=== PATIENT | male | born 1985 | race Caucasian/White ===

== ENCOUNTER 2020-07-21 16:00 | Emergency (ER) | payer SELFPAY ==
[2020-07-21] MEDS ORDERED: CETI10TA74 PO (23:07)
[2020-07-21] MEDS ORDERED: OXYC1TAB19 PO (23:07)
[2020-07-21] MEDS ORDERED: DOCU50CA9 PO (23:07)
[2020-07-21] MEDS ORDERED: FLUT1DIS3 IH (23:07)
[2020-07-21] MEDS ORDERED: CHOL400C PO (23:07)
[2020-07-21] MEDS ORDERED: CYCL10TA2 PO (23:07)
== END 2020-07-21 16:19 | disposition left against medical advice (07) ==
LOC: ER 16:00
DX: R11.0 Nausea (principal); Z53.21 Procedure and treatment not carried out due to patient leaving prior to being seen by health care provider

== ENCOUNTER 2020-07-21 16:41 | Inpatient (IN) | payer OTHER ==
[~2020-07-21] VITALS: Ht 180.3 cm; Wt 65.8 kg
[2020-07-21 17:13] LABS: BILIRUBIN,URINE NEGATIVE (NEG); CLARITY,URINE CLEAR; COLOR,URINE YELLOW; NITRITE,URINE NEGATIVE (NEG); PROTEIN,URINE NEGATIVE (NEG-TRACE); UROBILINOGEN,URINE 0.2 mg/dL (0.2 mg/dL)
[2020-07-21 17:22] LABS: AMPHETAMINE/METHAMPHETAMINE NEG (NEG); BARBITURATES NEG (NEG); BENZODIAZEPINES NEG (NEG); CANNABINOIDS NEG (NEG); COCAINE NEG (NEG); METHADONE NEG (NEG); OPIATES NEG (NEG); PHENCYCLIDINE NEG (NEG)
[2020-07-21 17:36] LABS: RBC,URINE 0 /HPF (0-2); WBC,URINE RARE /HPF (0-4)
[2020-07-21 17:37] LABS: BACTERIA,URINE 0 /HPF (0-FEW)
[2020-07-21] MEDS ORDERED: KETOROLAC 30 MG/ML VIAL. IVP ONE (17:45)
[2020-07-21] MEDS ORDERED: ONDANSETRON PF 4 MG/2 ML VIAL. IVP ONE (17:45)
[2020-07-21 17:57] LABS: BASO % 0 % (0-3); EOS % 1 % (0-3); HEMOGLOBIN 12.7 g/dL (13.0-17.5); LYMPH % 14 % (24-48); MEAN CORPUSCULAR HEMOGLOBIN 30 pg (25-35); MEAN CORPUSCULAR HGB CONC 34 g/dL (31-37); MEAN CORPUSCULAR VOLUME 87 fL (79-100); MONO # 0.3 x10^3/uL (0.0-1.1); MONO % 5 % (0-9); NEUT # 5.8 x10^3/uL (1.8-7.7); NEUT % 81 % (31-73); PLATELET COUNT 229 x10^3/uL (140-400); RED BLOOD COUNT 4.24 x10^6/uL (4.30-5.70); WHITE BLOOD COUNT 7.1 x10^3/uL (4.0-11.0)
[2020-07-21] MEDS ORDERED: THIAMINE INJ 100 MG, FOLIC ACID INJ 1 MG in IV NORMAL SALINE 1000ML BAG 1,000 ML IV ONE ×2 (18:00)
[2020-07-21 18:12] LABS: CALCIUM 9.1 mg/dL (8.5-10.1); GFR 84.5
[2020-07-21 18:16] LABS: ACETAMIN < 2.0 mcg/ml (10-30); ETHANOL < 10 mg/dL (0-10); SALIC < 2.8 mg/dL (2.8-20.0)
[2020-07-21 18:18] LABS: ALBUMIN/GLOBULIN RATIO 1.5 (1.0-1.7); TOTAL BILIRUBIN 0.7 mg/dL (0.2-1.0); TOTAL PROTEIN 6.7 g/dL (6.4-8.2)
--- NOTE | 2020-07-21 18:23 | PHYS DOC ---
Past Medical History Past Medical History: Alcoholism General Adult EDM: Chief Complaint: ALCOHOL INTOXICATION HPI: HPI: Patient is a 34 year old male with a history of alcoholism who presents to the ED today with alcohol related complaints. Patient states he typically drinks every day but yesterday he drank "a lot of alcohol". Patient states this included shots as well as regular alcohol. He states he cannot even remember how much he drank. He states this morning he woke up with a bad headache and nausea. He states he took oxycodone from his own prescription for chronic low back pain that he gets from a pain clinic. He states after taking the oxycodone his headache got worse. Denies any vision changes. Denies any abdominal pain. He states his right now heels dehydrated, discombobulated, and still has nausea and a headache. Patient states he knows he has an alcohol problem and does not need help Review of Systems: Review of Systems: Constitutional: Denies fever or chills. [] Eyes: Denies change in visual acuity. [] HENT: Denies nasal congestion or sore throat. [] Respiratory: Denies cough or shortness of breath. [] Cardiovascular: Denies chest pain or edema. [] GI: Reports nausea and vomiting. Denies abdominal pain, bloody stools or diarrhea. [] : Denies dysuria. [] Musculoskeletal: Denies back pain or joint pain. [] Integument: Denies rash. [] Neurologic: Reports headache, denies focal weakness or sensory changes. [] Psychiatric: Reports drinking heavily. Heart Score: Risk Factors: Risk Factors: DM, Current or recent (<one month) smoker, HTN, HLP, family history of CAD, obesity. Risk Scores: Score 0 - 3: 2.5% MACE over next 6 weeks - Discharge Home Score 4 - 6: 20.3% MACE over next 6 weeks - Admit for Clinical Observation Score 7 - 10: 72.7% MACE over next 6 weeks - Early Invasive Strategies Current Medications: Current Medications Medications (Trade) Dose Ordered Sig/Zeke Start Time Stop Time Status Last Admin Dose Admin Ketorolac Tromethamine (Toradol 30mg Vial) 30 mg 1X ONCE 07/21/20 17:45 07/21/20 17:47 DC Ondansetron HCl (Zofran) 4 mg 1X ONCE 07/21/20 17:45 07/21/20 17:47 DC Thiamine HCl 100 mg/Folic Acid 1 mg/Sodium Chloride 1,001.2 ml @ 990.198 mls/hr 1X ONCE 07/21/20 18:00 07/21/20 19:00 07/21/20 18:13 990.198 MLS/HR Allergies: Allergies: Allergies Coded Allergies Type Severity Reaction Last Updated Verified No Known Drug Allergies 07/21/20 No Physical Exam: PE: Constitutional: Well developed, well nourished, no acute distress, non-toxic appearance. [] HENT: Normocephalic, atraumatic, bilateral external ears normal, oropharynx moist, no oral exudates, nose normal. [] Eyes: PERRLA, EOMI, conjunctiva normal, no discharge. [] Neck: Normal range of motion, no tenderness, supple, no stridor. [] Cardiovascular:Heart rate regular rhythm, no murmur [] Lungs & Thorax: Bilateral breath sounds clear to auscultation [] Abdomen: Bowel sounds normal, soft, no tenderness, no masses, no pulsatile masses. [] Skin: Warm, dry, no erythema, no rash. [] Back: No tenderness, no CVA tenderness. [] Extremities: No tenderness, no cyanosis, no clubbing, ROM intact, no edema. [] Neurologic: Alert and oriented X 3, normal motor function, normal sensory function, no focal deficits noted. Cranial nerves II through XII intact Psychologic: Flat affect. Current Patient Data: Labs: Laboratory Tests Test 07/21/20 16:05 07/21/20 17:45 Urine Collection Type Void Urine Color Yellow Urine Clarity Clear Urine pH 6.0 (<5.0-8.0) Urine Specific [place] 1.015 (1.000-1.030) Urine Protein Negative mg/dL (NEG-TRACE) Urine Glucose (UA) Negative mg/dL (NEG) Urine Ketones (Stick) >=80 mg/dL (NEG) Urine Blood Negative (NEG) Urine Nitrite Negative (NEG) Urine Bilirubin Negative (NEG) Urine Urobilinogen Dipstick 0.2 mg/dL (0.2 mg/dL) Urine Leukocyte Esterase Negative (NEG) Urine RBC 0 /HPF (0-2) Urine WBC Rare /HPF (0-4) Urine Squamous Epithelial Cells None /LPF Urine Bacteria 0 /HPF (0-FEW) Urine Opiates Screen Neg (NEG) Urine Methadone Screen Neg (NEG) Urine Barbiturates Neg (NEG) Urine Phencyclidine Screen Neg (NEG) Urine Amphetamine/Methamphetamine Neg (NEG) Urine Benzodiazepines Screen Neg (NEG) Urine Cocaine Screen Neg (NEG) Urine Cannabinoids Screen Neg (NEG) Urine Ethyl Alcohol Neg (NEG) White Blood Count 7.1 x10^3/uL (4.0-11.0) Red Blood Count 4.24 x10^6/uL (4.30-5.70) L Hemoglobin 12.7 g/dL (13.0-17.5) L Hematocrit 37.0 % (39.0-53.0) L Mean Corpuscular Volume 87 fL (79-100) Mean Corpuscular Hemoglobin 30 pg (25-35) Mean Corpuscular Hemoglobin Concent 34 g/dL (31-37) Red Cell Distribution Width 13.0 % (11.5-14.5) Platelet Count 229 x10^3/uL (140-400) Neutrophils (%) (Auto) 81 % (31-73) H Lymphocytes (%) (Auto) 14 % (24-48) L Monocytes (%) (Auto) 5 % (0-9) Eosinophils (%) (Auto) 1 % (0-3) Basophils (%) (Auto) 0 % (0-3) Neutrophils # (Auto) 5.8 x10^3/uL (1.8-7.7) Lymphocytes # (Auto) 1.0 x10^3/uL (1.0-4.8) Monocytes # (Auto) 0.3 x10^3/uL (0.0-1.1) Eosinophils # (Auto) 0.0 x10^3/uL (0.0-0.7) Basophils # (Auto) 0.0 x10^3/uL (0.0-0.2) Sodium Level 125 mmol/L (136-145) L Potassium Level 4.0 mmol/L (3.5-5.1) Chloride Level 91 mmol/L (98-107) L Carbon Dioxide Level 25 mmol/L (21-32) Anion Gap 9 (6-14) Blood Urea Nitrogen 13 mg/dL (8-26) Creatinine 1.0 mg/dL (0.7-1.3) Estimated GFR (Cockcroft-Gault) 84.5 BUN/Creatinine Ratio 13 (6-20) Glucose Level 104 mg/dL (70-99) H Calcium Level 9.1 mg/dL (8.5-10.1) Total Bilirubin Pending Aspartate Amino Transferase (AST) Pending Alanine Aminotransferase (ALT) Pending Alkaline Phosphatase Pending Total Protein Pending Albumin Pending Albumin/Globulin Ratio Pending Lipase Pending Laboratory Tests 07/21/20 17:45 Laboratory Tests 07/21/20 17:45 EKG: EKG: [] Radiology/Procedures: Radiology/Procedures: [] Course & Med Decision Making: Course & Med Decision Making Pertinent Labs and Imaging studies reviewed. (See chart for details) This is a 34-year-old male patient presenting to the ED today with alcohol related complaints. Patient is an alcohol user daily. He states yesterday he drank heavily he cannot even remember how much alcohol and notes he took. He states this morning woke up with nausea and a bad headache. He took oxycodone from his own prescription and this made his headache worse. He states has continued to have nausea, headache and feels discombobulated. Denies any vomiting. Patient states he knows has alcohol problem and does not need help. CBC with hemoglobin of 12.7, hematocrit 37.0, CMP with sodium of 125, chloride 91, the rest of the labs are no acute findings, UA is negative, drug screen Is negative. Patient was started on a banana bag Spoke with Dr. Wells who accepted patient for admission Dragrae Disclaimer: [place] Disclaimer: This electronic medical record was generated, in whole or in part, using a voice recognition dictation system. Departure Departure Impression: Primary Impression: ETOHism Additional Impression: Hyponatremia Disposition: ADMITTED INPT THIS HOSP Condition: STABLE Referrals: UNKNOWN PCP NAME (PCP) DEMIAN GREEN APRN Jul 21, 2020 18:23
[2020-07-21] MEDS ORDERED: MORPHINE SULFATE 2 MG/ML VIAL. IV PRN (18:45)
[2020-07-21] MEDS ORDERED: ONDANSETRON PF 4 MG/2 ML VIAL. IV PRN (18:45)
[2020-07-21] MEDS ORDERED: ACETAMINOPHEN 325 MG TABLET. PO PRN (18:45)
[2020-07-21] MEDS: THIAMINE INJ 100 MG, FOLIC ACID INJ 1 MG in IV NORMAL SALINE 1000ML BAG 1,000 ML IV SCH (19:37)
[2020-07-21] MEDS ORDERED: IV NORMAL SALINE 1000ML BAG 1,000 ML IV ONE (20:00)
[2020-07-21 22:20] VITALS: BP 136/66
[2020-07-21] MEDS ORDERED: CYCL10TA2 PO (23:07)
[2020-07-21] MEDS ORDERED: CETI10TA74 PO (23:07)
[2020-07-21] MEDS ORDERED: OXYC1TAB19 PO (23:07)
[2020-07-21] MEDS ORDERED: DOCU50CA9 PO (23:07)
[2020-07-21] MEDS ORDERED: CHOL400C PO (23:07)
[2020-07-21] MEDS ORDERED: FLUT1DIS3 IH (23:07)
--- NOTE | 2020-07-21 23:55 | NUR ---
patient arrived to unit at approx 2220 accompanied by ED RN. Patient resting comfortably on RA. No complaints of pain. Pt states that he had COVID in April 2020 and has had bilateral eye discomfort since. Pt states that he drank alot last night "i don't even remember how much i drank", has been nauseas today without vomiting, states that "i chugged a lot of water because i had not peed all day" pt states that he usually drinks 5-6 beers per night, and does not want assistance to stop drinking. Bed in low locked position, call light in reach, reminded pt to call for assistance before ambulating, will continue to monitor.
[2020-07-22 02:45] VITALS: BP 107/61
[2020-07-22 05:18] LABS: BASO % 1 % (0-3); EOS # 0.1 x10^3/uL (0.0-0.7); EOS % 3 % (0-3); HEMATOCRIT 38.3 % (39.0-53.0); LYMPH # 1.5 x10^3/uL (1.0-4.8); LYMPH % 37 % (24-48); MEAN CORPUSCULAR HEMOGLOBIN 30 pg (25-35); MEAN CORPUSCULAR HGB CONC 34 g/dL (31-37); MEAN CORPUSCULAR VOLUME 89 fL (79-100); MONO # 0.4 x10^3/uL (0.0-1.1); MONO % 10 % (0-9); NEUT % 49 % (31-73); PLATELET COUNT 230 x10^3/uL (140-400); RED BLOOD COUNT 4.31 x10^6/uL (4.30-5.70)
[2020-07-22 05:37] LABS: ALBUMIN 3.2 g/dL (3.4-5.0); ALBUMIN/GLOBULIN RATIO 1.2 (1.0-1.7); CALCIUM 8.6 mg/dL (8.5-10.1); GFR 84.5; POTASSIUM 4.3 mmol/L (3.5-5.1); TOTAL BILIRUBIN 0.4 mg/dL (0.2-1.0); TOTAL PROTEIN 5.9 g/dL (6.4-8.2)
[2020-07-22 07:25] VITALS: BP 117/76
[2020-07-22] MEDS: THIAMINE INJ 100 MG, FOLIC ACID INJ 1 MG in IV NORMAL SALINE 1000ML BAG 1,000 ML IV SCH (08:19)
[2020-07-22] MEDS ORDERED: oxyCODONE/APAP 7.5/325 1 TAB TABLET PO PRN (09:45)
[2020-07-22 10:50] VITALS: BP 132/78
--- NOTE | 2020-07-22 10:59 | NUR ---
SS following for discharge planning. SS reviewed pt chart and discussed with pt RN. Pt is from home with spouse and is currently on room air. ETOH. Per RN, pt drinks six beers per day. PAT team referral made for assessment and recommendations. Pt denying that drinking is a problem. Discharge plan is to home when medically ready. SS will continue to follow for discharge planning.
--- NOTE | 2020-07-22 11:23 | SSS ---
ADMIT DATE: 07/22/2020 CHIEF COMPLAINT: Alcohol intoxication and weakness. HISTORY OF PRESENT ILLNESS: The patient is a pleasant 34-year-old male who drinks daily. He was watching a football game and decided to drink extra. He had shots and lots of beer. Then, he felt bad, so he drank a whole bunch of water. He has an associated headache and some nausea. When he got to the ER, we noticed that his sodium level was quite low. He appears to have hyponatremia induced symptoms. We admitted the patient. We gave him fluids overnight, normal saline, today his sodium level is up to 138. We are going to discharge. PAST MEDICAL HISTORY: Probable alcohol issues. ALLERGIES: None. FAMILY HISTORY: Diabetes. SOCIAL HISTORY: He works on appliances. He is . MEDICATIONS: Reviewed, please refer to the MRAD. REVIEW OF SYSTEMS: GENERAL: No history of weight change, weakness or fevers. SKIN: No bruising, hair changes or rashes. EYES: No blurred, double or loss of vision. NOSE AND THROAT: No history of nosebleeds, hoarseness or sore throat. HEART: No history of palpitations, chest pain or shortness of breath on exertion. LUNGS: Denies cough, hemoptysis, wheezing or shortness of breath. GASTROINTESTINAL: Denies changes in appetite, nausea, vomiting, diarrhea or constipation. GENITOURINARY: No history of frequency, urgency, hesitancy or nocturia. NEUROLOGIC: Denies history of numbness, tingling, tremor or weakness. PSYCHIATRIC: No history of panic, anxiety or depression. ENDOCRINE: No history of heat or cold intolerance, polyuria or polydipsia. EXTREMITIES: Denies muscle weakness, joint pain, pain on walking or stiffness. PHYSICAL EXAMINATION: VITALS: Within normal limits and are stable. GENERAL: No apparent distress. Alert and oriented. HEENT: Normal cephalic atraumatic, external auditory canals are patent EYES: Extraocular muscles are intact, pupils are equally round and reactive to light and accommodation MUSCULOSKELETAL: Well developed, well nourished, good range of motion ENDOCRINE: No thyromegaly was palpated LYMPHATICS: No cervical chain or axillary nodes were noted HEMATOPOIETIC: No bruising NECK: Supple, no JVD, no thyromegaly was noted. LUNGS: Clear to auscultation in all lung stephens without rhonchi or wheezing. HEART: RRR, S1, S2 present. Peripheral pulses intact, no obvious murmurs were noted. ABDOMEN: Soft, nontender. Positive bowel sounds no organomegaly, normal bowel sounds. EXTREMITIES: Without any cyanosis, clubbing, or edema. Pedal pulses intact, Homans sign is negative. NEUROLOGIC: Normal speech, normal tone. A and O x3, moves all extremities, no obvious focal deficits. PSYCHIATRIC: Normal affect, normal mood. Stable. SKIN: No ulcerations or rashes, good skin turgor, no jaundice. VASCULAR: Good capillary refill, neurovascular bundle appears to be intact. ASSESSMENT: Resolving hyponatremia. We will discharge. DISPOSITION: Home. ACTIVITY: As tolerated. DIET: Low sodium. MEDICATIONS: Please see MRAD. TOTAL TIME: 32 minutes. RACQUEL POPE DO DR: SARAH/zoraida JOB#: [id number] / [id number]
--- NOTE | 2020-07-22 12:23 | NUR ---
Discharge Note: HILDA MOJICA Discharge instructions and discharge home medications reviewed with Patient and a copy given. All questions have been answered and understanding verbalized.
== END 2020-07-22 13:13 | disposition home or self-care (01) | DRG 641 ==
LOC: ER 16:41 → ED HOLD 18:34 → 2 NORTH 22:04
PROVIDERS: ADMIT Family Medicine; ATTEND Family Medicine
DX: E87.1 Hypo-osmolality and hyponatremia (principal); F10.229 Alcohol dependence with intoxication, unspecified; G89.29 Other chronic pain; E86.0 Dehydration; Z83.3 Family history of diabetes mellitus
CPT/HCPCS: 36415; 80053; 80307; 80329; 81001; 83690; 85025; 96365; 96367; 96375; 99285; G0480; J2060; J2270; J2405; J3411; J3490; J7030; G0378